=== PATIENT | male | born 1970 | race Caucasian/White ===

== ENCOUNTER 2021-04-30 10:03 | Emergency (ER) | payer OTHER ==
[2021-04-30 10:35] LABS: BASOPHIL 0.5 % (0-2); HGB 15.2 g/dl (13.2-18.0); LYMPHOCYTE 22.8 % (15-48); MCH 31.6 pg (25.0-31.0); MCV 95.6 fL (78.0-100.0); MONOCYTE 8.8 % (0-12); MPV 9.6 fL (6.0-9.5); NEUTROPHIL 65.6 % (41-80); NRBC 0; PLT 216 K/uL (150-400); RBC 4.81 M/uL (4.70-6.00); RDW 12.4 % (11.5-14.0); WBC 6.2 K/uL (4.0-10.5)
[2021-04-30 11:06] LABS: ALBUMIN 4.2 g/dL (3.4-5.0); BILIRUBIN - TOTAL 0.5 mg/dL (0.2-1.0); BUN/CREAT RATIO (CALC) 16.2 RATIO; CREATININE 0.8 mg/dL (0.67-1.17); GLOBULIN (CALCULATION) 3.9 g/dL; TOTAL PROTEIN 8.1 g/dL (6.4-8.2)
[2021-04-30] MEDS ORDERED: PEPCID AC20 MG PO (11:19)
== END 2021-04-30 11:38 | disposition home or self-care (01) ==
LOC: FER 10:03
PROVIDERS: Internal Medicine
DX: K21.9 Gastro-esophageal reflux disease without esophagitis (principal); R07.89 Other chest pain; Z20.822 Contact with and (suspected) exposure to COVID-19; I10 Essential (primary) hypertension
CPT/HCPCS: 36415; 71045; 80053; 84484; 85025; 93005; U0002